=== PATIENT | male | born 1970 | race Caucasian/White ===

== ENCOUNTER 2019-03-24 11:47 | Emergency (ER) | payer OTHER, SELFPAY ==
[2019-03-24] VITALS (48 sets, daily range): BP systolic 110–142; BP diastolic 64–96; PULSE 59–88; RESP 16–28; TEMP 37.3; O2SAT 93–100
[2019-03-24] MEDS: Bupivacaine 0.5% Pres-Free 30 ML VIAL (11:48)
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
[2019-03-24] MEDS: Normal Saline 1,000 ML 1000 ML IV (11:55)
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
--- NOTE | 2019-03-24 11:57 | NUR.NOTE ---
Addendum entered by Zonia Perera RN 03/24/19 12:25: MD Field at bedside for FAST Original Note: Nursing Note:
[2019-03-24] MEDS: HYDROmorphone 2 MG/ML VIAL (12:00)
--- NOTE | 2019-03-24 12:00 | NUR.NOTE ---
Addendum entered by Zonia Perera RN 03/24/19 12:26: pt to CT with RN on monitor Original Note: Nursing Note:
[2019-03-24 12:13] LABS: Abs Immature Grans 0.01 k/cumm (0.0-0.09); Absolute Basophil Count 0.01 k/cumm (0.0-0.2); Absolute Lymphocyte Count 1.48 k/cumm (1.2-3.4); Absolute Monocyte Count 0.35 k/cumm (0.11-0.7); Absolute Neutrophil Count 3.94 k/cumm (1.2-6.7); Basophils % 0.2; Eosinophils % 1.7; HCT 39.9 % (40.0-50.0); HGB 13.7 g/dL (13.5-17.5); Immature Grans % 0.2; Lymphocytes % 25.1; Mean Corp. HGB Concentration 34.3 g/dL (32.0-36.0); Mean Corpuscular Hemoglobin 30.4 pg (27.0-33.0); Mean Corpuscular Volume 88.5 fL (80-95); Mean Platelet Volume 11.4 fL (8.0-11.0); Monocytes % 5.9; Neutrophils % 66.9; Platelet Count 239 x1000/uL (130-400); RBC 4.51 m/cumm (4.50-6.00); RBC Distribution Width 12.7 % (11.8-14.1); White Blood Cell Count 5.89 k/cumm (4.4-10.8)
--- NOTE | 2019-03-24 12:18 | NUR.NOTE ---
Nursing Note: pt returned from CT
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
[2019-03-24 12:27] LABS: INR 1.1 (0.9-1.1); Prothrombin Time 11.4 sec (9.3-11.0)
[2019-03-24 12:29] LABS: ALT 21 U/L (12-78); AST 13 U/L (15-37); Alkaline Phosphatase 76 U/L (46-116); Anion Gap 8.6 mmol/L (3-11); BUN 21 mg/dL (7-18); Bilirubin, Total 0.6 mg/dL (0.2-1.0); CO2 25.4 mmol/L (21.0-32.0); CREATININE 1.18 mg/dL (0.70-1.30); Calcium 8.5 mg/dL (8.5-10.1); Chloride 106 mmol/L (98-107); Glucose 124 mg/dL (70-100); Potassium 4.3 mmol/L (3.5-5.1); Sodium 140 mmol/L (136-145)
[2019-03-24] MEDS: Omnipaque 350 MG/ML 100 ML BTL IJ (12:30)
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
[2019-03-24] MEDS: Lidocaine 5% Patch 1 PATCH TP (13:21)
[2019-03-24] MEDS: LORazepam 2 MG/ML VIAL (13:52)
[2019-03-24] MEDS: Bupivacaine LIPOSOME/PF 133 MG/10 ML VIAL IJ (14:48)
[2019-03-24] MEDS: Acetaminophen 325 MG TAB 650 MG PO (16:07)
[2019-03-24] MEDS: Ketorolac 30 MG/ML VIAL IVP (16:07)
[2019-03-24] MEDS: Ibuprofen 600 MG TAB PO (17:30)
== END 2019-03-24 17:40 | disposition home or self-care (01) ==
PROVIDERS: Emergency Provider Student in an Organized Health Care Education/Training Program
DX: S22.42XA Multiple fractures of ribs, left side, initial encounter for closed fracture (principal); V18.0XXA Pedal cycle driver injured in noncollision transport accident in nontraffic accident, initial encounter; Y93.55 Activity, bike riding; K76.89 Other specified diseases of liver
CPT/HCPCS: 36415; 64450; 74177; 80053; 86850; 86900; 86901; 96361; 96374; 96375; 99285; 70450; 71260; 72125; 85025; 85610; 99284; J1885; J2060; J3490; L0172